=== PATIENT | male | born 1995 | race African-American/Black ===

== ENCOUNTER 2024-09-24 14:48 | Outpatient (REF) | payer OTHER, SELFPAY ==
[2024-09-24 17:42] LABS: MANUAL DIFF FLAG NO
[2024-09-24 18:22] LABS: Basophils Percent Auto 0.3 % (0-2); Eosinophils Absolute Auto 0.1 X10*3/uL (0.0-0.4); Eosinophils Percent Auto 2.3 % (0-4); Hematocrit 40.2 % (42.0-52.0); Hemoglobin 13.6 g/dl (14.0-18.0); Imm Gran Abs Auto 0.02 X10*3/uL (0.00-0.03); Imm Gran Pct Auto 0.3 % (0.0-0.4); Lymphocytes Percent Auto 33.6 % (20-40); Mean Corpuscular HGB Conc 33.8 g/dl (31.0-36.0); Mean Corpuscular Hemoglobin 30.1 pg (27.0-33.0); Mean Corpuscular Volume 88.9 fL (80.0-98.0); Mean Platelet Volume 11.5 fL (9.4-12.4); Monocytes Absolute Auto 0.4 X10*3/uL (0.1-1.2); Monocytes Percent Auto 6.5 % (2-11); Neutrophils Absolute Auto 3.4 x10*3/uL (2.0-8.3); Platelet Count 231 X10*3/uL (160-400); Red Blood Count 4.52 X10*6/uL (4.60-5.80); Red Cell Distribution Width 12.1 % (11.0-16.0)
[2024-09-24 18:41] LABS: Alanine Aminotransferase 26 U/L (0-40); Alkaline Phosphatase 55 U/L (39-117); Anion Gap 11 (12-20); Aspartate Amino Transferase 25 U/L (5-37); Bilirubin Total 0.4 mg/dL (0.0-1.0); Blood Urea Nitrogen 14 mg/dL (9-16); Calcium 8.9 mg/dL (8.4-10.2); Carbon Dioxide 27 mmol/L (22-29); Chloride 107 mmol/L (96-108); Cholesterol 177 mg/dL (<200); Estimated Glomerular Filt Rate > 60; Glucose Random 94 mg/dL (60-115); HDL Cholesterol 40 mg/dL (>40); LDL Cholesterol Calculated 98 mg/dL (<100); Potassium 3.7 mmol/L (3.3-5.1); Sodium 141 mmol/L (135-145); Total Protein 7.7 g/dL (6.5-8.0); Triglycerides 197 mg/dL (<150)
[2024-09-24 18:57] LABS: TSH reflex Free T4 0.82 uIU/mL (0.32-4.0)
[2024-09-25 01:59] LABS: CT PCR NOT DETECTED (Not Detect.); NG PCR NOT DETECTED (Not Detect.)
[2024-09-25 08:09] LABS: HIV AB/AG Nonreactive (Nonreactive)
[2024-09-25 09:00] LABS: ~HepC Num1 0.17 S/CO (0.00-0.79); ~Hepatitis C Antibody Nonreactive (Nonreactive)
== END 2024-09-24 14:49 | disposition home or self-care (01) ==
LOC: HO.CHCLDS 14:48
PROVIDERS: Visit Provider Internal Medicine
DX: Z00.00 Encounter for general adult medical examination without abnormal findings (principal); F41.9 Anxiety disorder, unspecified; Z11.3 Encounter for screening for infections with a predominantly sexual mode of transmission
CPT/HCPCS: 36415; 80053; 80061; 84443; 85025; 86803; 87389; 87491; 87591

== ENCOUNTER 2025-04-29 11:23 | Outpatient (REF) | payer OTHER, SELFPAY ==
--- OUTSIDE RECORDS SUMMARY | 2025-04-29 12:31 | XMS_ITS | Encounter Summary ---
Author Organization [employer] Address [address] [facility] [address] [place] [address] Care Team Providers Care Wet End Operator Name Role Phone Magdy Whelan MD Primary Care Prov ider Encounter Details Date Type Department Care Team (Latest Contact Info) Description 04/29/2025 Travel Social History Tobacco Use Types Packs/Day Years Used Date Smoking Tobacco: Former Cigarettes Passive Smoke Exposure: Never Smokeless Tobacco: Never Alcohol Answer Date Recorded Q1: How often do you have a drink containing alc ohol? 3 09/24/2024 Q2: How many drinks containi ng alcohol do you have on a typical day when you are drinking? 1 09/24/2024 Q3: How often do you have six or more drinks on one occasion? 1 09/24/2024 Depression Answer Date Recorded Patient Health Questionnaire-9 Score 11 10/06/2024 Patient Health Questionnaire-9 Score 11 10/06/2024 Last PHQ-9: Questionnaire Data Not on file 0 10/06/2024 Housing Stability Answer Date Recorded What is your housing situation today? I have roman rasheed 09/17/[address] you li ve. Do you have problems with any of the following? None of the above 09/17/2024 Food Insecurity Answer Date Recorded Within the past 12 months, y ou worried that your food would run out before you got money to buy more: Never True 09/17/2024 Within the past 12 months,th e food you bought just didn't last and you didn't have enough money to get more: Never True 10/2024 Transportation Answer Date Recorded In the past 12 months, has l ack of transportation kept you from medical appts, meetings, work or from getting things needed for daily living? No 09/17/2024 Utilities Answer Date Recorded In the past 12 months, has t he electric, gas, oil or water company threatened to shut off services in your home? No 09/17/2024 Depression Answer Date Recorded Patient Health Questionnaire-2 Score 2 10/06/2024 Internet Access Answer Date Recorded Internet Access Q1 Yes 09/17/2024 Internet Access Q2 Not on file 09/17/2024 Sex and Gender Information Value Date Recorded Sex Assigned at Male 07/16/2022 10:27 AM EDT Legal Sex Male 10:27 AM EDT Gender Identity Male 07/16/2022 10:27 AM EDT Sexual Orientation Straight 07/16/2022 10 :27 AM EDT documented as of this encounter Plan of Treatment Upcoming Encounters Date Type Department Care Team ([facility] st Contact Info) Description 05/13/2025 11:30 AM EDT Telemedicine [facility] MED & PEDS [address] [place] [address] Magdy Whelan MD [address] [place] [address] documented as of this encounter Visit Diagnoses Not on filedocumented in this encounter Additional Health Concerns Assessment Noted Time PHQ-9 Depression Total Score: 11 025 3:01 PM EST documented as of this encounter Care Teams Wet End Operator Relationship Specialty Start Date End Date Magdy Whelan MD [address] [place] [address] PCP - General Internal Medicine 02/05/20 documented as of this encounter
--- OUTSIDE RECORDS SUMMARY | 2025-04-29 12:31 | XMS_ITS | Clinical Summary ---
Author Organization [facility] Address [address] [place], [place] [id number] Phone Care Team Providers Care Dust Collector Ore Crushing Name Role Phone Pcp, Unknown Primary Care Provider Unavailabl e Allergies Active Allergy Reactions Criticality Noted Date Comments Sulfa (Sulfonamide Antibiotics) 09/17 Medications omeprazole (PRILOSEC) 20 mg TbEC Take 20 mg by mouth daily. Active Social History Tobacco Use Types Packs/Day Years Used Date Smoking Tobacco: Never Smokeless Tobacco: Never Alcohol Use Standard Drinks/Week Comments Not Currently 0 (1 standard drink = 0.6 oz pur e alcohol) Education Answer Date Recorded Are you interested in more education? Not on eric e 01/11/2023 Are you concerned about learning? Not on file 01/11/2023 No 01/11/2023 No 01/11/2023 Digital Access Answer Date Recorded No 02/09/2023 No 02/09/2023 No 02/09/2023 Reliable internet access at home? Not on file 02/09/2023 Device with a working camera? Not on file Sex and Gender Information Value Date Recorded Sex Assigned at Male 10/05/2020 2:27 PM EST Legal Sex Male 2:06 PM EST Gender Identity Male 10/05/2020 2:27 PM EST Sexual Orientation Not on file Last Filed Vital Signs Vital Sign Reading Time Taken Comments Blood Pressure 115/72 10/05/2020 2:23 PM EST Pulse 74 10/05/2020 2:23 PM EST Temperature 36.1 C (96.9 F) 10/05/2020 2:23 PM EST Respiratory Rate 18 10/05/2020 2:23 PM EST Oxygen Saturation 97% 10/05/2020 2:23 PM EST Inhaled Oxygen Concentration - - Weight 72.6 kg (160 lb) 10/05/2020 2:23 PM EST Height 177.8 cm (5' 10 ) 10/05/2020 2:23 PM EST Body Mass Index 22.96 10/05/2020 2:23 PM EST Plan of Treatment Health Maintenance Due Date Last Done Comments DEPRESSION SCREENING 2005 HEPATITIS C SCREENING 12/16/2011 HIV ONE-TIME SCREENING (18-6 5 YEARS) 12/16/2011 COVID-19 VACCINE (2023-2 5 season) 2024 04/29/2021, 04/08/2021 Adult Td,Tdap Booster 06/18/2031 06/18/2021 , 08/31/2016 SMOKING STATUS SCREENING (On ce After 26 Yrs) Completed 10/05/2020 HEPATITIS A VACCINES Aged Out No long er eligible based on patient's age to complete this topic HIB VACCINES Aged Out No longer eligi ble based on patient's age to complete this topic MENINGOCOCCAL VACCINES (ACWY) Aged Out No longer eligible based on patient's age to complete this topic MENINGOCOCCAL VACCINES (B) Aged Out N o longer eligible based on patient's age to complete this topic PNEUMOCOCCAL VACCINES (0-49 years) Aged Out No longer eligible b ased on patient's age to complete this topic Medical Devices Not on file Care Teams Dust Collector Ore Crushing Relationship Specialty Start Date End Date Pcp, Unknown PCP - General 10/05/20 Additional Source Comments The information contained in this document represents components of the legal health record. It is not the complete legal health record.[facility]
[2025-04-29 14:13] LABS: MANUAL DIFF FLAG NO
[2025-04-29 14:21] LABS: Hematocrit 40.3 % (42.0-52.0); Hemoglobin 13.5 g/dl (14.0-18.0); Imm Gran Abs Auto 0.02 X10*3/uL (0.00-0.03); Imm Gran Pct Auto 0.4 % (0.0-0.4); Lymphocytes Absolute Auto 2.3 X10*3/uL (1.2-4.9); Mean Corpuscular HGB Conc 33.5 g/dl (31.0-36.0); Mean Corpuscular Hemoglobin 29.3 pg (27.0-33.0); Mean Corpuscular Volume 87.4 fL (80.0-98.0); NRBC Abs Auto 0.000 X10*3/uL (0.0-0.012); NRBC Pct Auto 0.0 /100WBC (0.0-0.2); Platelet Count 240 X10*3/uL (160-400); Red Blood Count 4.61 X10*6/uL (4.60-5.80); White Blood Count 5.6 X10*3/uL (4.8-10.8)
[2025-04-30 03:40] LABS: HIV Num 1 0.05 S/CO (0.00-0.99); ~HepC Num1 0.18 S/CO (0.00-0.79); ~Hepatitis C Antibody Nonreactive (Nonreactive)
== END 2025-04-29 11:24 | disposition home or self-care (01) ==
LOC: HO.CHCLDS 11:23
PROVIDERS: Visit Provider Pediatrics
DX: Z11.3 Encounter for screening for infections with a predominantly sexual mode of transmission (principal); Z11.4 Encounter for screening for human immunodeficiency virus [HIV]; Z11.59 Encounter for screening for other viral diseases
CPT/HCPCS: 36415; 85025; 86803; 87389

== ENCOUNTER 2025-07-22 11:02 | Outpatient (AMB) | payer OTHER, SELFPAY ==
--- NOTE | 2025-07-22 11:36 | MHC.OFFVIS ---
Vital Signs 07/22/25 11:38 Height 5 ft 9 in Weight 191 lb 8 oz BMI 28.3 Intake Visit Reasons: boil R buttocks Intake Note: This patient presents for an assessment for boil on the right buttock. Pt c/o; reports completed one round of antibiotics with no improvement, reports no fever, chills, nause or vomtiing. Clinical Athletic Instructor Required: No Accompanied by: Self / Same As Patient Allergies cat dander Allergy (Severe, Verified 07/22/25 11:46) Rash Sulfa (Sulfonamide Antibiotics) Allergy (Severe, Verified 07/22/25 11:46) Hives Medication List - Last Reconciled 07/22/25 by Shay Rome MD No Known Home Meds HPI HPI boil R buttocks: Details: 29-year-old male referred for a ?boil? in the buttock. He apparently had this swelling and tenderness in the right perianal area about a month ago. He was seen by his primary care physician. He was given antibiotics and he said he had completed this He says that the area has improved significantly. However, he says that there is still persistent pain and tenderness along with what seems to be some induration He denies any drainage. He is not a diabetic. Says he is healthy overall. [facility] Medical History (Updated 07/22/25 @ 11:47 by Shay Rome MD) Perianal abscess Surgical History (Updated 07/22/25 @ 11:47 by SANTIAGO Albarran) Hx of surgical procedure Social History Patient Tobacco Use Status: Former Tobacco user Tobacco use type: Cigarette Review of Systems Const Denies chills and Denies fever(s) Card Denies chest pain, Denies dyspnea and Denies dyspnea on exertion Resp Denies cough, Denies dyspnea and Denies dyspnea on exertion GI Denies hematochezia and Denies change in bowel habits Denies hematuria and Denies difficulty urinating Musc Denies back pain and Denies limited range of motion Neuro Denies focal weakness and Denies convulsions Psych Denies depression and Denies mood swings Physical Exam Vital Signs: BMI result Body Mass Index 28.3 Const General: comfortable and no acute distress Orientation/consciousness: patient oriented x3 Neck Neck: Yes no lymphadenopathy Resp Auscultation: clear to auscultation bilaterally Cardio Rhythm: regular rhythm GI Other: Rectal exam shows a tender vague induration of the right perianal area without fluctuance, no discharge, no obvious sinus, no cellulitis Palpation (GI): Soft to palpation, nontender and no guarding Neuro General: patient oriented x3 Assessment & Plan Assessment & Plan (1) Perianal abscess: Code(s): K61.0 - Anal abscess Category: Medical Plan: He seems to have had a perianal abscess. This has improved from last month when he was started on antibiotics. However, he has this persistent tender induration. I am going to order for a CAT scan of the pelvis with IV contrast to see if there is any drainable area here. I will see him again in the office after his CAT scan to discuss the findings and see if he needs an I&D He is comfortable with the plan Orders: Orders Blood Urea Nitrogen Today K61.0 - Anal abscess Creatinine Today K61.0 - Anal abscess CT abdomen pelvis w IV con Today K61.0 - Anal abscess Coding Level of Care Code New Pt Level 3 (79701) Diagnoses Perianal abscess K61.0
[2025-07-22 11:38] VITALS: BMI 28.3
--- OUTSIDE RECORDS SUMMARY | 2025-07-22 13:32 | XMS_ITS | Encounter Summary ---
Author Organization [employer] Address [address] [place] [address] Care Team Providers Care Radiology Equipment Servicer Name Role Phone Magdy Whelan MD Primary Care Prov ider Reason for Visit * Reason Onset Date Comments Nurse Triage 12/30/2024 Encounter Details Date Type Department Care Team ([facility] st Contact Info) Description 12/30/2024 Telephone [facility] MEDICINE [address] [place] [address] Magdy Whelan MD [address] [place] [address] Nurse Triage Social History Tobacco Use Types Packs/Day Years [...] AM EDT documented as of this encounter Miscellaneous Notes * Telephone Encounter - Grazyna Morrell RN - 12/30/2024 9:33 AM EDT Triage call Pt reports sore throat for 2-3 days now. Hoarse voice, difficulty swallowing, tactile fever, unable to eat due to pain. Pt insurance is rejected and Pt is reporting no other insurance. Contact made with Regina Spencer who reports insurance is rejected as well. [facility] advised to check with front tender to straighten out insurance first or will have to pay out of pocket for visit. Pt verbalizes understanding and agrees. Advised for home care, salt water gargles, warm drinks, soft foods. Advised to seek eval at ED if unable to come to [facility]. Pt agrees. Protocol Used: Sore Throat (Adult) Protocol-Based Disposition: See in Office or Video Visit Today Video visit not offered Positive Triage Question: * Severe sore throat pain * All higher-acuity triage questions were negative Care Advice Discussed: * Reassurance and Education - Sore Throat * Sore Throat * Soft Diet * Drink Plenty of Liquids * Reasons To Call Back - Sore throat is the main symptom and it lasts longer than 48 hours - Sore throat is mild but lasts longer than 4 days - Fever lasts longer than 3 days - You become worse * Telephone Encounter - Maria G Adorno - 12/30/2024 8:52 AM EDT Symptoms: Sore Throat, Swallowing Difficulty Outcome: Schedule an urgent appointment (within 1 hour) or talk to a nurse or provider soon Reason: Trouble drinking The caller accepted this outcome. [phone] documented in this encounter Plan of Treatment Not on file documented as of this encounter Visit Diagnoses Not on filedocumented in this encounter Additional Health Concerns Assessment Noted Time PHQ-9 Depression Total Score: 11 025 3:01 PM EST documented as of this encounter Care Teams Radiology Equipment Servicer Relationship Specialty Start Date End Date Magdy Whelan MD [address] [place] [phone] PCP - General Internal Medicine 02/05/20 documented as of this encounter
--- OUTSIDE RECORDS SUMMARY | 2025-07-22 13:32 | XMS_ITS | Encounter Summary ---
Author Organization [employer] Address [address] [facility] [address] [place] [address] Care Team Providers Care Nocturnist Physician Name Role Phone Magdy Whelan MD Primary Care Prov ider Encounter Details Date Type Department Care Team ([facility] st Contact Info) Description 01/29/2023 Orders Only [facility] MED & PEDS [address] [place], [place] [phone] Yan Samuels MD [address] [place] [address] Social History Tobacco Use Types Packs/Day Years Used Date Smoking Tobacco: Never Assessed Depression Answer Date Recorded Patient Health Questionnaire-9 Score 0 12/07/2022 Depression Answer Date Recorded Patient Health Questionnaire-2 Score 0 12/07/2022 Sex and Gender Information Value Date Recorded Sex Assigned at Male 07/16/2022 10:27 AM EDT Legal Sex Male 10:27 AM EDT Gender Identity Male 07/16/2022 10:27 AM EDT Sexual Orientation Straight 07/16/2022 10 :27 AM EDT COVID-19 Exposure Response Date Recorded In the last 10 days, have yo u been in contact with someone who was confirmed or suspected to have Coronavirus/COVID-19? No / Unsure 01/22/2023 11:32 AM EDT documented as of this encounter Plan of Treatment Not on file documented as of this encounter Visit Diagnoses Not on filedocumented in this encounter Additional Health Concerns Assessment Noted Time PHQ-9 Depression Total Score: 0 12/08/19 23 10:33 AM EDT documented as of this encounter Care Teams Nocturnist Physician Relationship Specialty Start Date End Date Magdy Whelan MD [address] [place] [id number] PCP - General Internal Medicine 02/05/20 documented as of this encounter
--- OUTSIDE RECORDS SUMMARY | 2025-07-22 13:32 | XMS_ITS | Clinical Summary ---
Author Organization [employer] Address 75 [facility] 7 [place] [address] Care Team Providers Care Traffic Representative Name Role Phone Magdy Whelan MD Primary Care Prov ider Allergies Active Allergy Reactions Criticality Noted Date Comments Cat Dander Rash Low 11/01/2016 Sulfa Antibiotics Hives 11/01/2016 Medications * This document contains information received from the source organization and may not represent a complete record from that organization. ketotifen (Zaditor) 0.025 % ophthalmic solution One drop to eyes bid prn allergies 5 mL 1 06/04/20 23 Active clotrimazole (Lotrimin) 1 % cream Apply topically 2 times daily. 90 g 07/11/20 23 Active nystatin (Nystop) 107867 UNIT/GM powderIndicati ons:Toe web intertrigo Apply topically 2 times daily. 30 g 1 09/24/19 25 026 Active minoxidil (Loniten) 2.5 MG tabletIndicati ons:Androgenet ic alopecia Take 1 tablet (2.5 mg) by mouth Once per day. 30 tablet 11 11/18/19 25 026 Active naproxen (Naprosyn) 500 MG tabletIndicati ons:Boil, buttock,Sore throat TAKE 1 TABLET(500 MG) BY MOUTH TWICE DAILY 60 tablet 07/14/20 25 Active naproxen (Naprosyn) 500 MG tabletIndicati ons:Boil, buttock,Sore throat Take 1 tablet (500 mg) by mouth 2 times daily. 60 tablet 09/30/ 025 Discontinued Active Problems Problem Noted Date Diagnosed Date FANY (generalized anxiety disorder) 10/06/2024 Depression, unspecified 10/06/2024 Acne vulgaris 11/21/2023 Assessment & Plan (11/21/2023 11:43 AM EST): Will send adapalene for acne treatment, follow up with dermatology as needed Rash 07/11/2023 Assessment & Plan (09/11/2023 2:52 PM EST): Symptoms resolved, keep area dry, told to watch for symptoms recurrence Assessment & Plan (07/11/2023 1:51 PM EDT): Patient with rash on both thighs will be given Clotrimazole cream to apply on affected area. Advised patient to notify office if symptoms don't progress. Follow up with office or ED if rash increases or spreads. Nausea 07/10/2023 07/10/2023 Laceration of finger 07/10/2023 07/10/2023 Epigastric pain 07/10/2023 07/10/2023 Decrease in appetite 07/10/2023 07/10/2023 Annual physical exam 12/07/2022 Assessment & Plan (12/07/2022 10:13 AM EDT): Physical examination as unremarkable, will place order for new labs for further evaluation Sore throat 12/07/2022 Geronimo spots 12/07/2022 Assessment & Plan (09/11/2023 2:53 PM EST): Patient did not started retin a cream, will renew, in case of no improvement call back Assessment & Plan (12/07/2022 10:16 AM EDT): Small bumps on his liops, refers they have not gone away in more than 3-4 months, will refer to dermatology Encounters Date Type Department Care Team Description 07/12/2025 Refill [facility] [address] [place] [address] Yan Samuels MD Boil, buttock; Sore throat 06/15/2025 2:45 PM EDT Office Visit [facility] [address] [place] [address] Yan Samuels MD Boil, buttock (Primary Dx); Sore throat 06/15/2025 Travel 06/11/2025 Orders Only [facility] [address] [place] [address] Magdy Whelan MD 06/11/2025 Telephone [facility] [address] [place] [address] Magdy Whelan MD Medication Question 05/13/2025 1:30 PM EDT Telemedicine [facility] [address] [place] [address] Magdy Whelan MD Boil, buttock (Primary Dx) 05/13/2025 Telephone [facility] [address] [place] [address] Magdy Whelan MD No Show 05/13/2025 Telephone [facility] [address] [place] [address] Magdy Whelan MD 05/13/2025 Travel 05/12/2025 Telephone [facility] [address] [place] [phone] Magdy Whelan MD chart prep 05/12/2025 Travel 05/06/2025 Results Follow-Up [facility] [address] [place] [address] Angie Almendarez MD HIV-1/2 Antigen and Antibodies, Fourth Generation, with Reflexes, Hepatitis C Antibody with Reflex to HCV, RNA, Quantitative, Real-Time PCR, CBC auto differential 04/29/2025 11:00 AM EDT Office Visit [facility] [address] [place] [address] Angie Almendarez MD Screen for STD (sexually transmitted disease) (Primary Dx); Boil of buttock 04/29/2025 Travel 04/28/2025 Telephone [facility] [address] [place] [address] Magdy Whelan MD Nurse Triage from Last 3 Months Immunizations Immunization Administration Dates Next Due Hep A, Unspecified 02/12/2007 Hep B, adult 09/19/2018,06/24/2018,04/10/2018 Influenza injectable quadriv alent IIV4 with preservative 06/24/2018,08/29/2017 Influenza injectable quadriv alent preservative free 08/31/2016 Influenza, IIV3, injectable 07/08/2012 Meningococcal ACWY, unspecified 02/12/2007 Tdap 06/18/2021,08/31/2016 Typhoid, ViCPs 02/12/2007 Family History Medical History Relation Name Comments Dementia Father Depression Father Diabetes type II Mother Hypertension Mother Depression Sister Relation Name Status Comments Father Mother Sister Social History Tobacco Use Types Packs/Day Years Used Date Smoking Tobacco: Former Cigarettes Passive Smoke Exposure: Never Smokeless Tobacco: Never Tobacco Cessation:Counseling Given: Not Answered Alcohol Answer Date Recorded Q1: How often [...] Orientation Straight 07/16/2022 10 :27 AM EDT Last Filed Vital Signs Vital Sign Reading Time Taken Comments Blood Pressure 114/63 06/15/2025 2:40 PM EDT Pulse 84 06/15/2025 2:40 PM EDT Temperature 37.2 C (98.9 F) 04/29/2025 10:51 AM EDT Respiratory Rate 20 06/15/2025 2:40 PM EDT Oxygen Saturation 96% 06/15/2025 2:40 PM EDT Inhaled Oxygen Concentration - - Weight 86.6 kg (191 lb) 06/15/2025 2:40 PM EDT Height 175.3 cm (5' 9 ) 06/15/2025 2:40 PM EDT Body Mass Index 28.21 06/15/2025 2:40 PM EDT Plan of Treatment Health Maintenance Due Date Last Done Comments Hepatitis A Vaccines (2 of 2 - 2-dose series) 08/15/2007 02/12/2007 Family Planning (PISQ) 2008 HPV Vaccines (1 - Male 3-dose series) 2008 Depression Monitoring 04/05/2025 10/06/2024, 025 COVID-19 Vaccine ( season) 2025 04/29/2021, 04/08/2021 Influenza Vaccine (#1) 2025 8, 08/29/2017, 08/31/2016, Additional history exists SDOH Screening 09/17/2025 09/17/2024 Alcohol/Substance Use Screening 09/24/2025 09/24/2024 Tobacco Screening 04/29/2026 04/29/2025 Disability Screening 05/12/2026 05/12/2025 DTaP/Tdap/Td Vaccines (3 - Td or Tdap) 06/18/2031 06/18/2021, 08/31/2016 Zoster Vaccines (1 of 2) 12/16/2043 RSV Patients and Patients Aged 60 years or older (1 - 1-dose 75+ series) 2068 Meningococcal Vaccine Aged Out 02/12/2007 No olga pedro eligible based on patient's age to complete this topic Hepatitis B Vaccines Completed 09/19/2018, 06/24/2018, 04/10/2018 HIV Screening Completed 04/29/2025, 05/2025, 12/07/2022, Additional history exists Hepatitis C Screening Completed 04/29/2025 , 09/24/2024, 12/07/2022, Additional history exists HIB Vaccines Aged Out No longer eligi ble based on patient's age to complete this topic IPV Vaccines Aged Out No longer eligi ble based on patient's age to complete this topic Meningococcal B Vaccine Aged Out No l onger eligible based on patient's age to complete this topic Pneumococcal Vaccine: Pediatrics (0 to 5 Years) and At-Risk Patients (6 to 49) Years Aged Out No longer eligible based on patient's age to complete this topic RSV under 20 months Aged Out No longe r eligible based on patient's age to complete this topic Rotavirus Vaccines Aged Out No longer eligible based on patient's age to complete this topic Procedures Procedure Name Priority Date/Time Associated Diagnosis Comments CREATININE, SERUM Routine 07/22/2025 12: 03 PM EST UREA NITROGEN (BUN) Routine 07/22/2025 1 2:03 PM EST CBC WITH AUTO DIFFERENTIAL Routine 04/29/2025 11:25 AM EDT Screen for STD (sexually transmitted disease) HEPATITIS C AB W/REFL TO HCV RNA, QN, PCR Routine 04/29/2025 11:25 AM EDT Screen for STD (sexually transmitted disease) HIV 1/2 ANTIGEN/ANTIBODY, FOURTH GENERATION W/RFL Routine 04/29/2025 11:25 AM EDT Screen for STD (sexually transmitted disease) from Last 3 Months Results * Creatinine, Serum (07/22/2025 12:03 PM EST) Creatinine, Serum 0.92 0.5 - 1.4 mg/dL [facility] Estimated Glomerular Filt Rate >60 [facility] Comment:Chronic Kidney Disea se: Estimated GFR < 60 mL/min/1.70m3Eckrub Kidney Disease: Estimated GFR < 15 mL/min/1.73m2 07/22/2025 12:0 3 PM EST 07/22/2025 12:03 PM EST Generic External Data Provider LAB BLOOD ORDERAB LES Final Result Performing Organization Address [facility]/ZIP Co de Phone Number [facility] [address] [place] [phone] * (ABNORMAL) BUN (Blood Urea Nitrogen) (07/22/2025 12:03 PM EST) Pathologist [facility] Urea Nitrogen (BUN) 17(H) 9 - 16 mg/dL [facility] 07/22/2025 12:0 3 PM EST 07/22/2025 12:03 PM EST Generic External Data Provider LAB BLOOD ORDERAB LES Final Result Performing Organization Address City/[facility]/ZIP Co de Phone Number [facility] [address] [place] [phone] * (ABNORMAL) CBC auto differential (04/29/2025 11:25 AM EDT) White Blood Count 5.6 4.8 - 10.8 X10*3/uL [facility] Red Blood Count 4.61 4.60 - 5.80 X10*6/uL [facility] Hemoglobin 13.5(L) 14.0 - 18.0 g/dl [facility] Hematocrit 40.3(L) 42.0 - 52.0 % [facility] Mean Corpuscular Volume 87.4 80.0 - 98.0 fL [facility] Mean Corpuscular Hemoglobin 29.3 27.0 - 33.0 pg [facility] Mean Corpuscular HGB Conc 33.5 31.0 - 36.0 g/dl [facility] Red Cell Distribution Width 12.4 11.0 - 16.0 % [facility] Platelet Count 240 160 - 400 X10*3/uL [facility] Mean Platelet Volume 11.2 9.4 - 12.4 fL [facility] Neutrophils Percent Auto 48.9 45 - 73 % [facility] Imm Gran Pct Auto 0.4 0.0 - 0.4 % [facility] Lymphocytes Percent Auto 41.2(H) 20 - 40 % [facility] Monocytes Percent Auto 7.0 2 - 11 % [facility] Eosinophils Percent Auto 2.0 0 - 4 % [facility] Basophils Percent Auto 0.5 0 - 2 % [facility] NRBC Pct Auto 0.0 0.0 - 0.2 /100WBC [facility] Neutrophils Absolute Auto 2.8 2.0 - 8.3 x10*3/uL [facility] Imm Gran Abs Auto 0.02 0.00 - 0.03 X10*3/uL [facility] Lymphocytes Absolute Auto 2.3 1.2 - 4.9 X10*3/uL [facility] Monocytes Absolute Auto 0.4 0.1 - 1.2 X10*3/uL [facility] Eosinophils Absolute Auto 0.1 0.0 - 0.4 X10*3/uL [facility] Basophils Absolute Auto 0.0 0.0 - 0.2 X10*3/uL [facility] NRBC Abs Auto 0.000 0.0 - 0.012 X10*3/uL [facility] Blood Venous blood specimen / Unknown 04/29/2025 11:25 AM EDT 04/29/2025 2:08 PM EDT Angie Almendarez MD LAB BLOOD ORDERABLES Final Re sult Performing Organization Address [facility] Co de Phone Number [facility] [address] [place] [phone] * Hepatitis C Antibody with Reflex to HCV, RNA, Quantitative, Real-Time PCR (04/29/2025 11:25 AM EDT) Hepatitis C Antibody Nonreactive Nonreactive [facility] Comment:Antibodies to HCV no t detected; does not exclude early acuteHCV infection. Blood Venous blood specimen / Unknown 04/29/2025 11:25 AM EDT 04/29/2025 2:08 PM EDT Angie Almendarez MD LAB BLOOD ORDERABLES Final Re sult Performing Organization Address [facility] de Phone Number [facility] [address] [place] [phone] * HIV-1/2 Antigen and Antibodies, Fourth Generation, with Reflexes (04/29/2025 11:25 AM EDT) Pathologist [facility] HIV AB/AG Nonreactive Nonreactive [facility] Comment:HIV-1 p24 Ag and/or HIV-1/HIV-2 Ab not detected.A test result that is nonreactive does not exclude thepossibility of exposure to or infection with HIV-1 and/orHIV-2. Nonreactive results in this assay for individualswith prior exposure to HIV-1 and/or HIV-2 may be due toantigen and antibody levels that are below the limit ofdetection of this assay.The Lumific HIV Ag/Ab Combo assay result andsupplemental assay results should be interpreted inconjunction with the patient's clinical presentation,history and other laboratory results. If the results areinconsistent with clinical evidence, additional testing issuggested to confirm the result. Blood Venous blood specimen / Unknown 04/29/2025 11:25 AM EDT 04/29/2025 2:08 PM EDT us Angie Almendarez MD LAB BLOOD ORDERABLES Final Re sult [facility] [address] [place] [address] [phone] from Last 3 Months Insurance [facility] Care Teams Traffic Representative Relationship Specialty Start Date End Date Magdy Whelan MD [address] [place] [phone] PCP - General Internal Medicine 02/05/20
--- OUTSIDE RECORDS SUMMARY | 2025-07-22 13:32 | XMS_ITS | Encounter Summary ---
Author Organization [employer] Address [address] [facility] [address] 7 [place] [address] Care Team Providers Care Maintenance Electrician Name Role Phone Magdy Whelan MD Primary Care Prov ider Reason for Visit * Reason Onset Date Comments Medication Question 11/22/2023 Encounter Details Date Type Department Care Team ([facility] st Contact Info) Description 11/22/2023 Telephone [facility] [address] [place] [address] Magdy Whelan MD [address] [place] [address] Medication Question Social History Tobacco Use Types Packs/Day Years Used Date Smoking Tobacco: Some Days Cigarettes Passive Smoke Exposure: Never Smokeless Tobacco: Never Depression Answer Date Recorded Patient Health Questionnaire-9 Score 0 12/07/2022 Housing Stability Answer Date Recorded What is your housing situation today? I have roman rasheed 07/04/[address] you li ve. Do you have problems with any of the following? None of the above 07/04/2023 Food Insecurity Answer Date Recorded Within the past 12 months, y ou worried that your food would run out before you got money to buy more: Never True 07/04/2023 Within the past 12 months,th e food you bought just didn't last and you didn't have enough money to get more: Never True Transportation Answer Date Recorded In the past 12 months, has l ack of transportation kept you from medical appts, meetings, work or from getting things needed for daily living? No 07/04/2023 Utilities Answer Date Recorded In the past 12 months, has t he electric, gas, oil or water [employer] threatened to shut off services in your home? No 07/04/2023 Depression Answer Date Recorded Patient Health Questionnaire-2 Score 0 12/07/2022 Sex and Gender Information Value Date Recorded Sex Assigned at Male 07/16/2022 10:27 AM EDT Legal Sex Male 10:27 AM EDT Gender Identity Male 07/16/2022 10:27 AM EDT Sexual Orientation Straight 07/16/2022 10 :27 AM EDT documented as of this encounter Miscellaneous Notes * Telephone Encounter - Wing Danielle RN - 11/26/2023 9:12 AM EDT Tc to pt regarding appt request. Pt stated he has four spots on lips that he is requesting meds from but has received acne meds instead. Scheduled pt for appt with PCP for 11/27 at 1:15 pm. Pt verbalizes understanding and agreement with plan. * Telephone Encounter - Gm Dewey - 11/22/2023 4:21 PM EST Tc from pt requesting an appt with PCP face to face to get revaluated for medication. Pt states there was a miss understanding and is requesting an in person appt with PCP . * Telephone Encounter - Munira Han RN - 11/22/2023 4:02 PM EST Call to Vidya Siu to follow up on below. Per pt during Telehealth visit yesterday specifically asked for medication for lumps on lips for which had been seen by Dermatology for in the past. Pt did pickup Differin that was sent in but was reading insert and it says to avoid applying to areas of lips or mouth. Per chart review noted pt seen by Dr. Samuels during Derm clinic and sent Rx of tretinoin 0.25% cream for Dx of Folliculitis barbae. Pt advised will send to provider to review to further advise if Differein can be used for tx of this or if above rx can be sent as alternate. Please advise team nurses of Plan of care. * Telephone Encounter - Enrico Mcneill - 11/22/2023 9:58 AM EST Tc from patient calling to request the purpose of the medication adapalene (Differin) 0.1 % cream would like to know if it is for the lips or the face documented in this encounter Plan of Treatment Not on file documented as of this encounter Visit Diagnoses Not on filedocumented in this encounter Additional Health Concerns Assessment Noted Time PHQ-9 Depression Total Score: 0 12/08/19 23 10:33 AM EDT documented as of this encounter Care Teams Maintenance Electrician Relationship Specialty Start Date End Date AlcantaraMagdy Bran MD [address] [place] [phone] PCP - General Internal Medicine 02/05/20 documented as of this encounter
--- OUTSIDE RECORDS SUMMARY | 2025-07-22 13:32 | XMS_ITS | Encounter Summary ---
Author Organization [employer] Address 75 [facility] [address]t [place] [address] Care Team Providers Care Freelance Operator Name Role Phone Magdy Whelan MD Primary Care Prov ider Encounter Details Date Type Department Care Team ([facility] st Contact Info) Description 06/11/2025 Orders Only [facility] [address] [place], [place] [phone] Magdy Whelan MD [address] [place] [address] Social History Tobacco Use Types Packs/Day Years [...] on file documented as of this encounter Procedures Procedure Name Priority Date/Time Associated Diagnosis Comments CREATININE, SERUM Routine 07/22/2025 12: 03 PM EST UREA NITROGEN (BUN) Routine 07/22/2025 1 2:03 PM EST documented in this encounter Results * Creatinine, Serum (07/22/2025 12:03 PM EST) Creatinine, Serum 0.92 0.5 - 1.4 mg/dL [facility] Estimated Glomerular Filt Rate >60 [facility] Comment:Chronic Kidney Disea se: Estimated GFR < 60 mL/min/1.48s9[place]amnix Kidney Disease: Estimated GFR < 15 mL/min/1.73m2 07/22/2025 12:0 3 PM EST 07/22/2025 12:03 PM EST us Generic External Data Provider LAB BLOOD ORDERAB LES Final Result [facility] [address] [place] [address] [phone] * (ABNORMAL) BUN (Blood Urea Nitrogen) (07/22/2025 12:03 PM EST) Urea Nitrogen (BUN) 17(H) 9 - 16 mg/dL [facility] 07/22/2025 12:0 3 PM EST 07/22/2025 12:03 PM EST us Generic External Data Provider LAB BLOOD ORDERAB LES Final Result [facility] [address] [place] [phone] [phone] documented in this encounter Visit Diagnoses Not on filedocumented in this encounter Additional Health Concerns Assessment Noted Time PHQ-9 Depression Total Score: 11 10/06/ 025 3:01 PM EST documented as of this encounter Care Teams Freelance Operator Relationship Specialty Start Date End Date Magdy Whelan MD [address] [place] [phone] PCP - General Internal Medicine 02/05/20 documented as of this encounter
--- OUTSIDE RECORDS SUMMARY | 2025-07-22 13:32 | XMS_ITS | Clinical Summary ---
Author Organization [facility] Address [address] [place], [place] [phone] Phone Care Team Providers Care Chicken Handler Name Role Phone Pcp, Unknown Primary Care [...] HEPATITIS C SCREENING 12/16/2011 HIV ONE-TIME SCREENING (18-65 YEARS) 12/16/2011 INFLUENZA VACCINE (#1) 2025 8, 08/29/2017, 08/31/2016, Additional history exists COVID-19 VACCINE (2024- season) 2025 04/29/2021, 04/08/2021 Adult Td,Tdap Booster 06/18/2031 06/18/2021, 016 SMOKING STATUS SCREENING (Once After 26 Yrs) Completed 10/05/2020 HEPATITIS A [...] (0-49 years) Aged Out No longer eligible based on patient's age to complete this topic Medical Devices Not on file Care Teams Chicken Handler Relationship Specialty Start Date End Date Pcp, Unknown PCP - General 10/05/20 Additional Source Comments The information contained in this document represents components of the legal health record. It is not the complete legal health record.[facility]
== END 2025-07-22 11:50 | disposition home or self-care (01) ==
LOC: HO.HGS 11:03
PROVIDERS: PCP Internal Medicine; Visit Provider Surgery
DX: K61.0 Anal abscess (principal)
CPT/HCPCS: 99203

== ENCOUNTER 2025-07-22 11:02 | Outpatient (REF) | payer OTHER, SELFPAY ==
[2025-07-22 13:26] LABS: Blood Urea Nitrogen 17 mg/dL (9-16); Estimated Glomerular Filt Rate > 60
== END 2025-07-22 11:03 | disposition home or self-care (01) ==
LOC: HO.LAB 11:02
PROVIDERS: PCP Internal Medicine; Visit Provider Surgery
DX: K61.0 Anal abscess (principal)
CPT/HCPCS: 36415; 82565; 84520; 99202